=== PATIENT | male | born 2000 | race Caucasian/White ===

== ENCOUNTER 2019-02-02 19:09 | Emergency (ER) | payer SELFPAY ==
[2019-02-02 19:16] VITALS: BP 107/58
--- NOTE | 2019-02-02 19:59 | UC ---
Head Injury HPI - HPI Summary HPI Summary: 18-year-old male comes in with a chief complaint of head injury. This happened several hours ago he slipped on the ice and fell striking the right side of his head. There was a loss of consciousness of a few seconds. He has mild photophobia. Been having mild nausea that's worsening. He's been having some forgetfulness not remembering certain words since the fall. No weakness or numbness. Does have mild neck pain. Denies any other injuries. - History Of Current Complaint Chief Complaint: UCHeadInjury Stated Complaint: HEAD INJURY Time Seen by Provider: 02/02/19 19:37 Pain Intensity: 3 - Allergies/Home Medications Allergies/Adverse Reactions: Allergies Allergy/AdvReac Type Severity Reaction Status Date / Time No Known Allergies Allergy Verified 02/02/19 19:16 Home Medications: Home Medications Ibuprofen TAB* [Advil TAB*] 400 mg PO ONCE PRN 02/02/19 [History Confirmed 02/02] PMH/Surg Hx/FS Hx/Imm Hx Previously Healthy: Yes - CONCUSSION SEVERAL YEARS AGO - Surgical History Surgical History: Yes Surgery Procedure, Year, and Place: APPENDECTOMY 08/2017 - Family History Known Family History: Positive: Non-Contributory - Social History Alcohol Use: Daily Substance Use Type: None Smoking Status (MU): Current Every Day Smoker Type: Cigarettes Amount Used/How Often: 1 CIG/DAY Review of Systems All Other Systems Reviewed And Are Negative: Yes Constitutional: Positive: Other - SEE HPI Skin: Positive: Negative Eyes: Positive: Photophobia. Negative: Blurred Vision ENT: Positive: Negative Respiratory: Positive: Negative Cardiovascular: Positive: Negative Gastrointestinal: Positive: Nausea Motor: Positive: Negative Neurovascular: Positive: Negative Musculoskeletal: Positive: Other: - SEE HPI Neurological: Positive: Headache Psychological: Positive: Negative Is Patient Immunocompromised?: No Physical Exam Triage Information Reviewed: Yes Appearance: Well-Appearing, No Pain Distress, Well-Nourished Vital Signs: Initial Vital Signs Temp 98.3 F 02/02/19 19:10 Pulse 60 02/02/19 19:10 Resp 16 02/02/19 19:10 BP 107/58 02/02/19 19:10 Pulse Ox 96 02/02/19 19:10 Vital Signs Reviewed: Yes Eyes: Positive: Conjunctiva Clear, Other: - PERRLA/EOMI MILD PHOTOPHOBIA ENT: Positive: Pharynx normal, Other - B/L CERUMEN OBSTRUCTION Neck: Positive: Supple, Other: - MILD POSTERIOR MIDLINE TENDERNESS TO PALPATION Respiratory: Positive: Lungs clear, Normal breath sounds, No respiratory distress Cardiovascular: Positive: RRR Musculoskeletal Exam: Normal Musculoskeletal: Positive: Strength Intact, ROM Intact Neurological Exam: Normal Neurological: Positive: Alert, Muscle Tone Normal Psychological Exam: Normal Psychological: Positive: Age Appropriate Behavior Skin: Positive: Other - ABRASION RIGHT HEAD Head Injury Course/Dx - Course Course Of Treatment: Because of the word finding difficulty, loss of consciousness, nausea and photophobia the patient has a concussion. We discussed evaluation with head CT. At this time I recommended further evaluation in the emergency department for a head CT. I did discuss this with the emergency department physician. - Differential Dx/Diagnosis Provider Diagnosis: Head injury, Concussion Discharge - Sign-Out/Discharge Documenting (check all that apply): Patient Departure All imaging exams completed and their final reports reviewed: No Studies - Discharge Plan Condition: Stable Disposition: HOME-RECOMMEND TO ED Patient Education Materials: Concussion (ED), Head Injury (ED) Referrals: [facility] [place] PHYSICIAN REFERRAL [Outside] [facility] [Provider Group] Additional Instructions: GO DIRECTLY TO THE EMERGENCY DEPARTMENT FOR FURTHER EVALUATION. LONG YOUR HEAD CT IS NORMAL, FOLLOW UP WITH SPORTS MEDICINE FOR YOUR CONCUSSION - Billing Disposition and Condition Condition: STABLE Disposition: Home-Recommend to ED
== END 2019-02-02 20:04 | disposition home health service (06) ==
LOC: UCEAST 19:09
DX: S06.0X1A Concussion with loss of consciousness of 30 minutes or less, initial encounter (principal); W00.0XXA Fall on same level due to ice and snow, initial encounter; Y92.9 Unspecified place or not applicable; H61.23 Impacted cerumen, bilateral; F17.210 Nicotine dependence, cigarettes, uncomplicated
CPT/HCPCS: 99202; G0463

== ENCOUNTER → 2019-02-02 20:20 | Emergency (ER) | payer OTHER ==
[~2019-02-02 20:20] MED LIST: Acetaminophen TAB* 325 MG PO ONE; Cyclobenzaprine TAB* 10 MG PO ONE
--- NOTE | 2019-02-02 21:27 | ED ---
Head Injury - HPI Summary HPI Summary: Patient complains of an injury at 1:30 PM today when he slipped on the ice while running in a race with subsequent loss of consciousness, right cheek pain and right knee pain. Patient continued to run after regaining consciousness. Patient has been ambulatory, however complains of progressive headache and nausea. Right cheek pain rated at 2/10, right knee pain 2/10. Denies vision change, vomiting, no deficits, altered mental status, fever, cough, sore throat , CV, SOB, N/V/D, abdominal pain, change in urine, change in BM. None. - History Of Current Complaint Chief Complaint: EDHeadInjury Stated Complaint: "CAME FROM CONV.CARE,CONCUSSION, NEED CT" PER PT Time Seen by Provider: 02/02/19 21:10 Hx Obtained From: Patient Mechanism Of Injury: Fall From A Standing Position Onset/Duration: Started Hours Ago Onset of Pain: Immediate Severity Currently: Mild Severity Initially: Mild Pain Intensity: 3 Pain Scale Used: 0-10 Numeric Location of Head Injury: Diffuse Character: Throbbing Associated Signs And Symptoms: LOC (Time In Secs./Mins/Hrs) - 30 secs - Allergies/Home Medications Allergies/Adverse Reactions: Allergies Allergy/AdvReac Type Severity Reaction Status Date / Time No Known Allergies Allergy Verified 02/02/19 20:33 PMH/Surg Hx/FS Hx/Imm Hx Endocrine/Hematology History: Denies: Hx Anticoagulant Therapy History: Denies: Hx Dialysis Sensory History: Denies: Hx Eye Prosthesis Opthamlomology History: Denies: Hx Legally Blind EENT History: Denies: Hx Deafness Neurological History: Denies: Hx Dementia Psychiatric History: Denies: Hx Autism - Surgical History Surgery Procedure, Year, and Place: APPENDECTOMY 08/2017 Infectious Disease History: No Infectious Disease History: Reports: Traveled Outside the [place] in Last 30 Days - Family History Known Family History: Positive: Non-Contributory - Social History Alcohol Use: Daily Substance Use Type: Reports: None Smoking Status (MU): Current Every Day Smoker Type: Cigarettes Amount Used/How Often: 1 CIG/DAY Review of Systems Constitutional: Negative Eyes: Negative ENT: Negative Cardiovascular: Negative Respiratory: Negative Gastrointestinal: Negative Genitourinary: Negative Musculoskeletal: Other Skin: Negative Positive: Headache Psychological: Normal All Other Systems Reviewed And Are Negative: Yes Physical Exam - Summary Physical Exam Summary: Swelling to right cheek. Full range of motion of jaw with no intraoral trauma noted. Neuro exam normal. Full range of motion of neck. No other evidence of trauma to face head or neck. Lung sounds clear to auscultation bilaterally. Abdomen soft nontender. Patient moving all 4 extremities freely without any indication of pain. Triage Information Reviewed: Yes Vital Signs On Initial Exam: Initial Vitals Temp Pulse Resp BP Pulse Ox 98.6 F 74 16 120/84 99 02/02/19 20:30 02/02/19 20:30 02/02/19 20:30 02/02/19 20:30 02/02/19 20:30 Vital Signs Reviewed: Yes Appearance: Positive: Well-Appearing Skin: Positive: Warm Head/Face: Positive: Other Eyes: Positive: Normal ENT: Positive: Normal ENT inspection Dental: Negative: Dental Fracture @, Bleeding Neck: Positive: Supple Respiratory/Lung Sounds: Positive: Clear to Auscultation Cardiovascular: Positive: Normal Abdomen Description: Positive: Nontender Musculoskeletal: Positive: Normal Neurological: Positive: Normal Psychiatric: Positive: Normal AVPU Assessment: Alert - Bradford Coma Scale Best Eye Response: 4 - Spontaneous Best Motor Response: 6 - Obeys Commands Best Verbal Response: 5 - Oriented Coma Scale Total: 15 Diagnostics - Vital Signs Vital Signs Temp Pulse Resp BP Pulse Ox 02/02/19 20:30 98.6 F 74 16 120/84 99 - Laboratory Lab Statement: Any lab studies that have been ordered have been reviewed, and results considered in the medical decision making process. Head Injury Course/Dx Course Of Treatment: Patient complains of an injury at 1:30 PM today when he slipped on the ice while running in a race with subsequent loss of consciousness , right cheek pain and right knee pain. Patient continued to run after regaining consciousness. Patient has been ambulatory, however complains of progressive headache and nausea. Right cheek pain rated at 2/10, right knee pain 2/10. Denies vision change, vomiting, no deficits, altered mental status, fever, cough, sore throat, CV, SOB, N/V/D, abdominal pain, change in urine, change in BM. None. Physical exam:Swelling to right cheek. Full range of motion of jaw with no intraoral trauma noted. Neuro exam normal. Full range of motion of neck. No other evidence of trauma to face head or neck. Lung sounds clear to auscultation bilaterally. Abdomen soft nontender. Patient moving all 4 extremities freely without any indication of pain. Vital signs within normal limits. CT brain negative. Diagnosis concussion. Advised patient no activities that risk reinjury of head 2 weeks. - Diagnoses Provider Diagnoses: Head injury, Concussion Discharge - Sign-Out/Discharge Documenting (check all that apply): Patient Departure Patient Received Moderate/Deep Sedation with Procedure: No - Discharge Plan Condition: Stable Disposition: HOME Prescriptions: Cyclobenzaprine TAB* [Flexeril 10 MG TAB*] 10 mg PO TID PRN 3 Days #10 tab PRN Reason: Pain Patient Education Materials: Concussion (ED), Head Injury (ED) Forms: *Gen. Provider Communication Referrals: No Primary Care Phys,NOPCP [Primary Care Provider] - [facility] [Outside] Additional Instructions: Tylenol or ibuprofen for headache. Symptoms may come and go intermittently but should improve over the next couple weeks. Do not engage in contact sports for a couple weeks until cleared by primary care. Return to the ED for any new or worsening symptoms. - Billing Disposition and Condition Condition: STABLE Disposition: Home
[2019-02-02 21:45] VITALS: BP 125/69
== END | disposition home or self-care (01) ==
LOC: ED 20:20
DX: S06.0X1A Concussion with loss of consciousness of 30 minutes or less, initial encounter (principal); M25.561 Pain in right knee; G50.1 Atypical facial pain; W00.0XXA Fall on same level due to ice and snow, initial encounter; Y93.02 Activity, running; Y92.9 Unspecified place or not applicable; F17.210 Nicotine dependence, cigarettes, uncomplicated
CPT/HCPCS: 70450; 99282; A9270-GY

== ENCOUNTER 2019-08-04 14:11 | Emergency (ER) | payer OTHER ==
--- NOTE | 2019-08-04 14:46 | ED ---
Head Injury - HPI Summary HPI Summary: This patient is a 19 year old M presenting to ED with a chief complaint of head injury at 1315. Patient sat down too aggressively and hit the back of his head on a wooden board that jutted out behind his chair. He states that clear fluid immediately started draining from the L nostril in a dripping stream for about 5 -10. The nostril is not draining anymore. He also reports having a headache described as aching. The patient rates the pain 3/10 in severity. Symptoms aggravated by movement. Symptoms alleviated by nothing. PMHx of three concussions and appendicitis. Patient reports nauseous. Patient denies vomiting. - History Of Current Complaint Chief Complaint: EDHeadInjury Stated Complaint: HEADACH, HIT HEAD Time Seen by Provider: 08/04/19 14:34 Hx Obtained From: Patient Mechanism Of Injury: Direct Blow Onset/Duration: Started Hours Ago - At 1315, Traumatic, Resolved - No longer leaking from L nostril Onset of Pain: Immediate, Post Accident Severity Currently: Moderate Severity Initially: Moderate Pain Intensity: 4 Pain Scale Used: 0-10 Numeric Aggravating Factor(s): Movement Alleviating Factor(s): Other: - Nothing Associated Signs And Symptoms: Negative - LOC, vomiting, Nausea, Headache - Allergies/Home Medications Allergies/Adverse Reactions: Allergies Allergy/AdvReac Type Severity Reaction Status Date / Time No Known Allergies Allergy Verified 08/04/19 14:18 PMH/Surg Hx/FS Hx/Imm Hx Endocrine/Hematology History: Denies: Hx Anticoagulant Therapy GI History: Reports: Other GI Disorders - Appendicitis History: Denies: Hx Dialysis Sensory History: Denies: Hx Eye Prosthesis, Hx Legally Blind, Hx Deafness Opthamlomology History: Denies: Hx Eye Prosthesis, Hx Legally Blind Neurological History: Reports: Other Neuro Impairments/Disorders - 3xconcussions Denies: Hx Dementia Psychiatric History: Denies: Hx Autism - Surgical History Surgery Procedure, Year, and Place: APPENDECTOMY 08/2017 Infectious Disease History: No Infectious Disease History: Denies: Traveled Outside the [place] in Last 30 Days - Family History Known Family History: Positive: Non-Contributory - Social History Alcohol Use: Daily Hx Substance Use: No Substance Use Type: Reports: None Hx Tobacco Use: Yes Smoking Status (MU): Current Every Day Smoker Type: Cigarettes Amount Used/How Often: 1 CIG/DAY Review of Systems Positive: Nausea. Negative: Vomiting Positive: Headache All Other Systems Reviewed And Are Negative: Yes Physical Exam - Summary Physical Exam Summary: GENERAL: Patient is a well-developed and nourished M who is lying comfortable in the stretcher. Patient is not in any acute respiratory distress. HEAD AND FACE: Normocephalic. No drainage from nose. No depressed skull fracture. EYES: PERRLA, EOMI x 2. EARS: Hearing grossly intact. MOUTH: Oropharynx within normal limits. NECK: Supple, trachea is midline, no adenopathy, no JVD, no carotid bruit. CHEST: Symmetric, no tenderness at palpation LUNGS: Clear to auscultation bilaterally. No wheezing or crackles. CVS: Regular rate and rhythm, S1 and S2 present, no murmurs or gallops appreciated. ABDOMEN: Soft, non-tender. Bowel sounds are normal. No abnormal abdominal pulsations. EXTREMITIES: Full ROM in all major joints, no edema, no cyanosis or clubbing. NEURO: Alert and oriented x 3. No acute neurological deficits. Speech is normal and follows commands. SKIN: Dry and warm GCS: 15. Triage Information Reviewed: Yes Vital Signs On Initial Exam: Initial Vitals Temp Pulse Resp BP Pulse Ox 97.9 F 88 14 124/69 98 08/04/19 14:15 08/04/19 14:15 08/04/19 14:15 08/04/19 14:15 08/04/19 14:15 Vital Signs Reviewed: Yes Diagnostics - Vital Signs Vital Signs Temp Pulse Resp BP Pulse Ox 08/04/19 14:15 97.9 F 88 14 124/69 98 - Laboratory Lab Statement: Any lab studies that have been ordered have been reviewed, and results considered in the medical decision making process. - CT Brain CT Interpretation Completed By: Radiologist Summary of CT Findings: Normal CT of the brain. Dr. Infante has reviewed this radiology report. Re-Evaluation - Re-Evaluation First Eval Re-Evaluation Time: 15:46 Comment: Patient has no evidence of drainage from nostrils after being observed here for 1.5 hours. Told patient to return if he starts to leak from the nostril again. Discussed results with patient. Patient will be discharged home with dx of head injury. Patient understands and agrees with this plan. Head Injury Course/Dx Course Of Treatment: This patient is a 19 year old M presenting to ED with a chief complaint of head injury at 1315. Brain CT revealed Normal CT of the brain. Because the patient is no longer leaking fluid from the L nostril in the ED, I am unable to test for CSF leak. However, I educated the patient on CSF leak and gave strict return precautions. I discussed results with patient, and he reports feeling better. He is hemodynamically stable and safe for discharge. Strict return precautions given and he will otherwise follow up with his PCP. - Diagnoses Provider Diagnoses: Head injury Discharge ED - Sign-Out/Discharge Documenting (check all that apply): Patient Departure - Discharge Patient Received Moderate/Deep Sedation with Procedure: No - Discharge Plan Condition: Stable Disposition: HOME Patient Education Materials: Head Injury (ED), Cerebrospinal Fluid Leak (ED) Referrals: [facility] - [place] [Primary Care Provider] - 3 Days Additional Instructions: Follow up with your primary care physician in 1-3 days. RETURN TO THE EMERGENCY DEPARTMENT FOR CHANGING OR WORSENING SYMPTOMS. - Billing Disposition and Condition Condition: STABLE Disposition: Home - Attestation Statements Document Initiated by Jonathane: Yes Documenting Scribe: Ruddy Booth Provider For Whom Jean is Documenting (Include Credential): Montana Infante MD Scribe Attestation: I, Ruddy Booth, scribed for Montana Infante MD on 08/04/19 at 1812. Scribe Documentation Reviewed: Yes Provider Attestation: The documentation as recorded by the Ruddy pinedo accurately reflects the service I personally performed and the decisions made by me, Montana Infante MD Status of Scribe Document: Viewed
[2019-08-04 16:07] VITALS: BP 109/60
== END 2019-08-04 16:05 | disposition home or self-care (01) ==
LOC: ED 14:11
DX: S09.90XA Unspecified injury of head, initial encounter (principal); W22.09XA Striking against other stationary object, initial encounter; Y92.9 Unspecified place or not applicable; F17.210 Nicotine dependence, cigarettes, uncomplicated; R51 Headache
CPT/HCPCS: 70450; 99283

== ENCOUNTER 2019-10-13 03:07 | Emergency (ER) | payer OTHER ==
--- NOTE | 2019-10-13 03:37 | ED ---
Adult Trauma - HPI Summary HPI Summary: This patient is a 19 year old M presenting to [facility] with a chief complaint of right rib tenderness since 10/13/19 at 0150. Symptoms aggravated by nothing. Symptoms alleviated by nothing. Patient reports someone fell on his right side and he heard a crack and has had SOB since then. Pt reports it feels like second upper right rib fracture. Pt reports hit head. Hx of broken rib playing rugby. - History of Current Complaint Chief Complaint: EDChestWallPain Stated Complaint: RIB PAIN PER PT Time Seen by Provider: 10/13/19 03:29 Hx Obtained From: Patient Onset/Duration: Started Hours Ago, Still Present Current Severity: Mild Pain Intensity: 5 Pain Scale Used: 0-10 Numeric Location: Chest Aggravating Factor(s): Nothing Alleviating Factor(s): Nothing Associated Signs & Symptoms: Positive: SOB - Allergy/Home Medications Allergies/Adverse Reactions: Allergies Allergy/AdvReac Type Severity Reaction Status Date / Time No Known Allergies Allergy Verified 08/04/19 14:18 PMH/Surg Hx/FS Hx/Imm Hx Endocrine/Hematology History: Denies: Hx Anticoagulant Therapy GI History: Reports: Other GI Disorders - Appendicitis History: Denies: Hx Dialysis Sensory History: Denies: Hx Eye Prosthesis, Hx Legally Blind, Hx Deafness Opthamlomology History: Denies: Hx Eye Prosthesis, Hx Legally Blind Neurological History: Reports: Other Neuro Impairments/Disorders - 3xconcussions Denies: Hx Dementia Psychiatric History: Denies: Hx Autism - Surgical History Surgery Procedure, Year, and Place: APPENDECTOMY 08/2017 Infectious Disease History: No Infectious Disease History: Denies: Traveled Outside the [place] in Last 30 Days - Family History Known Family History: Positive: Non-Contributory - Social History Alcohol Use: Daily Hx Substance Use: No Substance Use Type: Reports: None Hx Tobacco Use: Yes Smoking Status (MU): Current Every Day Smoker Type: Cigarettes Amount Used/How Often: 1 CIG/DAY Review of Systems Negative: Fever Positive: Shortness Of Breath, Other - right rib tenderness All Other Systems Reviewed And Are Negative: Yes Physical Exam - Summary Physical Exam Summary: Appearance: Well-appearing, Well-nourished, lying in bed comfortable Skin: Warm, dry, no obvious rash Eyes: sclera anicteric, no conjunctival pallor ENT: mucous membranes moist Neck: deferred Respiratory: tenderness in the right interior lower rib cage with no point tenderness, no deformity, no crepitus Cardiovascular: Appears well perfused, pulses are nml Abdomen: deferred Musculoskeletal: Moving all 4 extremities without obvious discomfort Neurological: Awake and alert, mentation is normal, speech is fluent and appropriate Psychiatric: affect is normal, does not appear anxious or depressed Triage Information Reviewed: Yes Vital Signs On Initial Exam: Initial Vitals Temp Pulse Resp BP Pulse Ox 98.6 F 107 18 99/75 98 10/13/19 03:09 10/13/19 03:09 10/13/19 03:09 10/13/19 03:09 10/13/19 03:09 Vital Signs Reviewed: Yes Procedures - Sedation Patient Received Moderate/Deep Sedation with Procedure: No Diagnostics - Vital Signs Vital Signs Temp Pulse Resp BP Pulse Ox 10/13/19 03:09 98.6 F 107 18 99/75 98 - Laboratory Lab Statement: Any lab studies that have been ordered have been reviewed, and results considered in the medical decision making process. - Radiology Rib w/ Chest X-Ray Radiology Interpretation Completed By: ED Physician Summary of Radiographic Findings: Per ED Physician,. no fracture, no lung injury, no pneumothorax. Pending official report. Adult Trauma Course/Dx - Course Course Of Treatment: This patient is a 19 year old M presenting to [facility] with a chief complaint of right rib tenderness since 10/13/19 at 0150. Patient reports someone fell on his right side and he heard a crack and has had SOB since then. Pt reports it feels like second upper right rib fracture. Pt reports hit head. Physical Exam Findings reveals no abnormalities except for tenderness in the right interior lower rib cage with no point tenderness, no deformity, no crepitus. Rib w/ Chest X-Ray reveals no fracture, no lung injury, no pneumothorax. Patient will be discharged with dx chest wall contusion and follow up with [facility]. The patient is agreeable with this plan. - Diagnoses Provider Diagnoses: Chest wall contusion Discharge ED - Sign-Out/Discharge Documenting (check all that apply): Patient Departure - discharge - Discharge Plan Condition: Stable Disposition: HOME Patient Education Materials: Chest Wall Pain (ED) Referrals: [facility] - [facility] [Primary Care Provider] - If Needed Additional Instructions: I did not see a broken rib or a lung injury on the films, so I think you just bruised the chest wall. If the radiologist sees something subtle I didn't cone picker on we will contact you. - Billing Disposition and Condition Condition: STABLE Disposition: Home - Attestation Statements Document Initiated by Jean: Yes Documenting Scribe: Jazmin Blanco Provider For Whom Jean is Documenting (Include Credential): Dr. Robb Medellin MD Scribe Attestation: I, Jazmin Blanco, scribed for Dr. Robb Medellin MD on 10/15/19 at 1831. Scribe Documentation Reviewed: Yes Provider Attestation: The documentation as recorded by the Jazmin pinedo accurately reflects the service I personally performed and the decisions made by me, Dr. Robb Medellin MD Status of Scribe Document: Viewed
[2019-10-13 04:14] VITALS: BP 116/70
== END 2019-10-13 04:11 | disposition home or self-care (01) ==
LOC: ED 03:07
DX: S20.219A Contusion of unspecified front wall of thorax, initial encounter (principal); W50.0XXA Accidental hit or strike by another person, initial encounter; Y92.9 Unspecified place or not applicable; F17.210 Nicotine dependence, cigarettes, uncomplicated
CPT/HCPCS: 99282

== ENCOUNTER 2020-01-11 15:56 | Emergency (ER) | payer OTHER ==
[2020-01-11 16:05] VITALS: BP 129/84
--- NOTE | 2020-01-11 16:18 | UC ---
Laceration HPI - HPI Summary HPI Summary: patient lacerated L forearm on a nail in wall sometime late last night. he was drinking so did not come for treatment. feeling well but concerned he may need sutures - History Of Current Complaint Chief Complaint: UCLaceration Stated Complaint: ARM INJURY Time Seen by Provider: 01/11/20 16:08 Hx Obtained From: Patient Laceration Location: Arm Mechanism Of Injury: Sharp Trauma Onset/Duration: Sudden Onset Severity: Mild Pain Intensity: 1 - Allergies/Home Medications Allergies/Adverse Reactions: Allergies Allergy/AdvReac Type Severity Reaction Status Date / Time No Known Allergies Allergy Verified 01/11/20 16:05 Home Medications: Home Medications NK [No Home Medications Reported] 01/11/20 [History Confirmed 01/11/20] PMH/Surg Hx/FS Hx/Imm Hx Previously Healthy: Yes Other History Of: Negative For: Anticoagulant Therapy - Surgical History Surgical History: Yes Surgery Procedure, Year, and Place: APPENDECTOMY 08/2017 - Family History Known Family History: Positive: Non-Contributory - Social History Occupation: Employed Full-time Lives: Alone Alcohol Use: Daily Substance Use Type: None Smoking Status (MU): Current Every Day Smoker Type: Cigarettes Amount Used/How Often: 1 CIG/DAY Cessation Counseling: Patient Advised to Stop - Immunization History Most Recent Tetanus Shot: 06/03/2013 Review of Systems All Other Systems Reviewed And Are Negative: Yes Constitutional: Positive: Negative Respiratory: Positive: Negative Cardiovascular: Positive: Negative Musculoskeletal: Positive: Negative. Negative: Decreased ROM Psychological: Positive: Negative Is Patient Immunocompromised?: No Physical Exam Triage Information Reviewed: Yes Appearance: Well-Appearing, No Pain Distress, Well-Nourished Vital Signs: Initial Vital Signs Temp 97.5 F 01/11/20 16:00 Pulse 83 01/11/20 16:00 Resp 12 01/11/20 16:00 BP 129/84 01/11/20 16:00 Pulse Ox 100 01/11/20 16:00 Vital Signs Reviewed: Yes Respiratory Exam: Normal Respiratory: Positive: Lungs clear Cardiovascular Exam: Normal Cardiovascular: Positive: RRR Musculoskeletal Exam: Normal Musculoskeletal: Positive: Strength Intact Neurological Exam: Normal Psychological Exam: Normal Skin: Positive: Other - 2cm linear laceration dorsal L forearm with scabbed coating. no bleeding or drainage Laceration Course/Dx - Differential Dx - Laceration/Wound Differental Diagnoses: Abrasion, Cellulitis, Laceration - Diagnosis Provider Diagnosis: Laceration Discharge ED - Sign-Out/Discharge Documenting (check all that apply): Patient Departure All imaging exams completed and their final reports reviewed: No Studies - Discharge Plan Condition: Good Disposition: HOME Patient Education Materials: Laceration (ED) Referrals: No Primary Care Phys,NOPCP [Primary Care Provider] - Additional Instructions: keep wound clean and dry and change dressing every day please return if you see redness, swelling or drainage form wound - Billing Disposition and Condition Condition: GOOD Disposition: Home
[2020-01-11] MEDS ORDERED: Tetan/Diph/Pertus SYR(Tdap)* 0.5 ML SYR(BOOSTRIX) use SYR contains LATEX IM ONE (16:26)
== END 2020-01-11 16:47 | disposition home or self-care (01) ==
LOC: UCEAST 15:56
DX: S51.812A Laceration without foreign body of left forearm, initial encounter (principal); Z23 Encounter for immunization; F17.210 Nicotine dependence, cigarettes, uncomplicated; W45.0XXA Nail entering through skin, initial encounter; Y92.9 Unspecified place or not applicable
CPT/HCPCS: 90471; 90715; 99212; G0463